=== PATIENT | male | born 1955 | race Caucasian/White ===

== ENCOUNTER 2019-11-01 05:13 | Day surgery (SDC) | payer MEDICARE, MEDICAID ==
[2019-11-01] VITALS (9 sets, daily range): BP systolic 112–144; BP diastolic 55–94
[~2019-11-01] VITALS: Ht 188 cm; Wt 120.4 kg
[2019-11-01] MEDS ORDERED: normal saline 1,000 ML IV SCH (05:40)
[2019-11-01] MEDS ORDERED: LIDOcaine/PRILOcaine 5gm cream TP ONE (05:40)
[2019-11-01] MEDS ORDERED: diphenhydrAMINE 25mg capsule PO PRN (05:40)
[2019-11-01] MEDS ORDERED: LORazepam 0.5 MG tablet PO PRN (05:40)
[2019-11-01 06:12] LABS: BASOPHILS % (AUTO) 0.6 % (0-1); EOSINOPHILS # (AUTO) 0.3 X10'3 (0-0.9); EOSINOPHILS % (AUTO) 4.2 % (0-6); HEMATOCRIT 48.7 % (42.0-52.0); HEMOGLOBIN 16.5 g/dl (14.0-17.9); LYMPHOCYTES # (AUTO) 2.6 X10'3 (1.1-4.8); MEAN CORPUSCULAR HEMOGLOBIN 30.6 PG (27.0-31.0); MEAN CORPUSCULAR HGB CONC 33.8 g/dL (33.0-36.5); MEAN CORPUSCULAR VOLUME 90.4 FL (78-98); MEAN PLATELET VOLUME 8.3 FL (7.4-10.4); MONOCYTES # (AUTO) 0.9 X10'3 (0-0.9); MONOCYTES % (AUTO) 11.4 % (2-12); NEUTROPHILS # (AUTO) 3.8 X10'3 (1.8-7.7); NEUTROPHILS % (AUTO) 49.8 % (42-75); PLATELET COUNT 287 X10'3 (140-440); RED BLOOD COUNT 5.39 X10'6 (4.70-6.10); RED CELL DISTRIBUTION WIDTH 14.5 % (11.5-14.5); WHITE BLOOD COUNT 7.7 X10'3 (4.5-11.0)
[2019-11-01] MEDS ORDERED: LISI40TA4 PO (06:13)
[2019-11-01] MEDS ORDERED: GABA-530 PO (06:13)
[2019-11-01] MEDS ORDERED: AMLO10TA13 PO (06:13)
[2019-11-01] MEDS ORDERED: ATOR40TA PO (06:13)
[2019-11-01] MEDS ORDERED: ENOX120D (06:13)
[2019-11-01] MEDS ORDERED: CLOP75TA35 PO (06:13)
[2019-11-01] MEDS ORDERED: PRAV10TA39 PO (06:13)
[2019-11-01] MEDS ORDERED: WARF3TAB56 PO (06:13)
[2019-11-01] MEDS ORDERED: SOFO1TAB3 PO (06:13)
[2019-11-01] MEDS ORDERED: METO50TA17 PO (06:13)
[2019-11-01 06:22] LABS: ALBUMIN 3.3 G/DL (3.4-5.0); ANION GAP 10 (8-16); BLOOD UREA NITROGEN 19 MG/DL (7-18); BUN/CREATININE RATIO 16.7 (5.4-32.0); CALCIUM 8.9 MG/DL (8.5-10.1); CHLORIDE 108 MMOL/L (99-107); CREATININE 1.14 MG/DL (0.60-1.10); GLUCOSE 105 MG/DL (70-104); POTASSIUM 3.9 MMOL/L (3.5-5.1); SODIUM 141 MMOL/L (135-145); TOTAL CARBON DIOXIDE 22.6 MMOL/L (24-32); eGFR 64 ML/MIN
[2019-11-01] MEDS ORDERED: nitroGLYCERIN-Tridil 50MG/D5W 250 ML IV ONE (06:22)
[2019-11-01] MEDS ORDERED: fentaNYL/PF 50MCG/1 ML 2ML syringe ONE (06:22)
[2019-11-01] MEDS ORDERED: verapamil 2.5 mg/ml inj IV ONE (06:22)
[2019-11-01] MEDS ORDERED: midazolam 2 mg/2 ml injection ONE (06:22)
[2019-11-01] MEDS ORDERED: iohexol 350MG/ML 100ml bottle IV ONE ×2 (06:23→07:11)
[2019-11-01] MEDS ORDERED: heparin 1,000unit/ml 10ml vial 10 ML ONE (06:23)
[2019-11-01] MEDS ORDERED: LIDOcaine 1% (10mg/ml)w/preservative injection 20ml MDV ONE (06:23)
[2019-11-01 06:24] LABS: PARTIAL THROMBOPLASTIN TIME 30 SECONDS (22-32)
[2019-11-01] MEDS ORDERED: nitroGLYCERIN 0.4mg SUBLingual tab SL PRN (08:20)
[2019-11-01] MEDS ORDERED: ondansetron/PF 4mg/2ml inj IV PRN (08:20)
[2019-11-01] MEDS ORDERED: HYDROcodone/acetaminophen 10/325mg tab PO PRN (08:20)
[2019-11-01] MEDS ORDERED: OXAZEpam 15mg capsule PO PRN (08:20)
[2019-11-01] MEDS ORDERED: proCHLORperazine 10 MG/2 ml inj IV PRN (08:20)
[2019-11-01] MEDS ORDERED: HYDROcodone/acetaminophen 5mg/325mg tablet PO PRN (08:20)
--- NOTE | 2019-11-01 10:20 | NUR ---
Patient in room 1340. I have received report from KATE Rosen and had the opportunity to ask questions and assume patient care.
== END 2019-11-01 11:50 | disposition home or self-care (01) ==
LOC: SSTAY O 05:13
PROVIDERS: ATTEND Student in an Organized Health Care Education/Training Program
DX: R94.39 Abnormal result of other cardiovascular function study (principal); T82.855A Stenosis of coronary artery stent, initial encounter; I25.10 Atherosclerotic heart disease of native coronary artery without angina pectoris; G47.33 Obstructive sleep apnea (adult) (pediatric); I10 Essential (primary) hypertension; I25.2 Old myocardial infarction; E78.5 Hyperlipidemia, unspecified; Z86.73 Personal history of transient ischemic attack (TIA), and cerebral infarction without residual deficits; Z95.1 Presence of aortocoronary bypass graft; Z79.01 Long term (current) use of anticoagulants; Z79.899 Other long term (current) drug therapy; Z95.4 Presence of other heart-valve replacement; Y83.8 Other surgical procedures as the cause of abnormal reaction of the patient, or of later complication, without mention of misadventure at the time of the procedure; Y92.89 Other specified places as the place of occurrence of the external cause
CPT/HCPCS: 36415; 80048; 85025; 85610; 85730; 93005; 93455; 99152; 99153; C1760; C1769; C1894; J1644; J2001; J2250; J3010; J7030; Q0163; Q9967; A4620; A5120; J3490

== ENCOUNTER 2024-08-05 15:08 | Inpatient (IN) | payer MEDICAID, MEDICARE ==
[~2024-08-05] VITALS: Ht 188 cm; Wt 104.0 kg
[~2024-08-05 15:08] MED LIST: AMLO10TA13 PO; ATOR40TA PO; CLOP75TA34 PO; GABA-530 PO; LISI40TA13 PO; METO50TA17 PO; PRAV10TA39 PO; SOFO1TAB3 PO; WARF3TAB56 PO
--- NOTE | 2024-08-05 15:14 | Physician Documentation ---
History of Present Illness ~ Stated Complaint: NSTEMI Time Seen by MD: 15:13 OK to notify your PCP?: Yes Source: patient, RN/MD, EMS, RN notes reviewed, old records Mode of Arrival: EMS Exam Limitations: no limitations HPI 68 year old male seen in the bed 01 presents to the emergency department via EMS as a transfer from [facility] due to an Nstemi. HPI from [facility]: This 75 year old male with a complex past medical history presents today after sustaining a ground level fall with a head strike to the back of his head, he was experiencing neck pain, he does recall the entire event but on arrival here today he notes he has been having multiple falls recently, he has been feeling generally unwell for about five days. He had a temp on arrival of 102 F by medic and was given a gram of IV Tylenol, he also had an oxygen saturation of 87% on room air. He denies loss of consciousness. Meds given to the patient: Sodium chloride: 1000ml Lasix: 40mg/4ml Lidocaine 400mg Fentanyl: 50mcg/1ml Aspirin: 324mg Lovenox: 100mg CT Head without contrast: Impressions: 1: No evidence of acute intracranial hemorrhage, midline shift or mass effect. 2: Mild cerebral volume loss with mild nonspecific periventricular white matter hypodensity probably secondary to chronic small vessel ischemic disease. 3: Area of hypodensity in the left occipital region, nonspecific, may be encephalomalacia from chronic infarct. CT Cervical spine without contrast: Impression: No evidence of acute cervical spine fracture or malalignment. Chest AP 1 view: Impressions : No evidence of acute disease. Cardiomegaly. Right elbow 3 views: Possible cortical defect of the distal humerus, only visualized on lateral view and no significant joint effusion. Nondisplaced fracture cannot be entirely excluded. Medication Reconciliation Allergies: Coded Allergies: No Known Allergies (Unverified , 11/01/19) Scheduled Amlodipine Besylate (Amlodipine Besylate), 0.5 MG PO DAILY, (Reported) Atorvastatin Calcium* (Lipitor*), 1 TAB PO DAILY, (Reported) Clopidogrel Bisulfate (Clopidogrel), 75 MG PO DAILY, (Reported) Furosemide (Furosemide), 1 TAB PO BID, (Reported) Gabapentin (Gabapentin), 100 MG PO TID, (Reported) Lisinopril* (Lisinopril*), 40 MG PO DAILY, (Reported) Metoprolol Succinate (Metoprolol Succinate), 1 TAB PO DAILY, (Reported) Pravastatin Sodium (Pravastatin Sodium), 10 MG PO DAILY, (Reported) Discontinued Medications Metoprolol Tartrate* (Metoprolol Tartrate*), 50 MG PO DAILY, (Reported) Discontinued Reason: wrong med Sofosbuvir/Velpatasvir (Sofosbuvir-Velpatasvir 400-100), 1 TAB PO DAILY, (Reported) Discontinued Reason: patient no longer taking Warfarin Sodium (Warfarin Sodium), 3 MG PO DAILY, (Reported) Discontinued Reason: patient no longer taking Past Medical History Past Medical History: Dementia, Coronary Artery Disease, Hypertension, Hepatitis C, Chronic Back Pain, Osteoarthritis Past Surgical History: orthopedic surgeries, other Review of Systems All Other Systems at this time: Reviewed and Negative ROS As stated above in the HPI, otherwise all systems are reviewed and negative. Physical Exam Vital Signs: RN Vital Signs have been reviewed: Yes Pulse Oximetry Reflects: adequate oxygenation Physical Exam General: The patient is well developed, well nourished, nontoxic appearing and is in no acute distress. Skin: [place], warm and dry with no rashes. HEENT: Head was normocephalic and atraumatic. Eyes - pupils equal, round, reactive to light and accommodation. Extraocular movements were intact. Conjunctivae were nonicteric. Ears - bilateral tympanic membranes were normal. The mouth and oropharynx were clear with moist mucous membranes. There were no pharyngeal exudates or erythema. Neck: Supple and nontender. There was no jugular venous distention, lymphadenopathy, thyromegaly or masses. Chest: Clear to auscultation bilaterally without wheezes, rales or rhonchi. No accessory muscle use. No dullness to percussion. Heart: Rate IRRegular and rhythmic. S1, S2. No murmurs. Palpation of the chest wall was normal. No rubs or thrills. Abdomen: Soft, nontender and nondistended. Positive bowel sounds. No guarding or rebound. No hepatosplenomegaly or palpable masses. Extremities: Left ruth is read and warm to touch. No cyanosis, clubbing or edema. The patient moves all extremities. Pulses were equal and symmetric. Neurologic: Cranial nerves II-XII were intact. Sensation was intact to light touch throughout. Motor strength was 5/5 in all four extremities. Deep tendon reflexes were intact in both upper and lower extremities. Psychologic: The patient was oriented to person, place and time. The patient demonstrated appropriate judgement and insight. Progress Progress Note 1550: The case was discussed with Dr. Joseph who was informed on the patients case and kindly agreed to admission. 1658: [facility] called and confirmed the patient is negative for covid. Results/Orders Reviewed/noted all lab results: Yes Results/Orders Orders - OBEY COX MD Echocardiogram (08/05/24 15:21) Monitor (08/05/24 15:21) Oxygen (08/05/24 15:21) Saline Lock (08/05/24 15:21) Electrocardiogram (08/05/24 15:21) Page Hospitalist (08/05/24:25) Fill Out Med Reconciliation (08/05/24 15:25) Completed Orders - OBEY COX MD Cbc/Diff (08/05/24 15:21) MG (08/05/24 15:21) Pt Inr (08/05/24 15:21) PTT (08/05/24 15:21) PBNP (08/05/24 15:21) Echocardiogram (08/05/24 15:21) C-Reactive Protein (08/05/24 15:21) ESR (08/05/24 15:21) Normal Saline 1000ml (Sodium Chloride 10 (08/05/24 15:25) Electrocardiogram (08/05/24 15:21) Hs Troponin I W Calculations (08/05/24 15:21) Ceftriaxone 2gm/D5w 50ml Bag (Rocephin 2 (08/05/24 15:35) CMP (08/05/24 15:30) Ua W/Microscopic, Cult If Ind (08/05/24 17:17) Vital Signs 08/05/24 08/05/24 08/05/24 08/05/24 15:18 15:20 15:20 15:47 Temp 98.3 Pulse 90 69 Resp 20 16 14 B/P (MAP) 105/65 124/89 (101) Pulse Ox 95 95 100 O2 Delivery Nasal Cannula* O2 Flow Rate 0 2 0 FiO2 N/A Laboratory Tests Test 08/05/24 15:30 White Blood Count 8.7 Red Blood Count 4.79 Hemoglobin 12.9 L Hematocrit 38.9 L Mean Corpuscular Volume 81.3 Mean Corpuscular Hemoglobin 26.9 L Mean Corpuscular Hemoglobin Concent 33.1 Red Cell Distribution Width 19.8 H Platelet Count 192 Mean Platelet Volume 8.3 Neutrophils (%) (Auto) 85.3 H Lymphocytes (%) (Auto) 7.2 L Monocytes (%) (Auto) 7.2 Eosinophils (%) (Auto) 0.1 Basophils (%) (Auto) 0.2 Neutrophils # (Auto) 7.5 Lymphocytes # (Auto) 0.6 L Monocytes # (Auto) 0.6 Eosinophils # (Auto) 0.0 Basophils # (Auto) 0.0 CBC Comment Erythrocyte Sedimentation Rate 6 Prothrombin Time 12.0 INR International Normalized Ratio 1.2 Activated Partial Thromboplast Time 31 Coagulation Comments Sodium Level 144 Potassium Level 3.9 Chloride Level 108 H Carbon Dioxide Level 23.8 L Anion Gap 12 Blood Urea Nitrogen 17 Creatinine 1.61 H Estimated GFR/1.73 m2 43 BUN/Creatinine Ratio 10.6 Glucose Level 110 H Calcium Level 8.3 L Magnesium Level 1.7 Total Bilirubin 1.0 Aspartate Amino Transf (AST/SGOT) 24 Alanine Aminotransferase (ALT/SGPT) 22 Alkaline Phosphatase 84 Troponin I High Sensitivity 576 *H C-Reactive Protein 2.69 H Pro-B-Type Natriuretic Peptide 6438 H Total Protein 6.0 L Albumin 2.7 L Globulin 3.3 Albumin/Globulin Ratio 0.8 L Chemistry Comments Re-Evaluation Re-Evaluation : Re-Evaluation: Improved Progress Patient was seen and examined. Patient was given reassurance. Patient was transferred from [facility]. Patient had new onset with AFib RVR. Patient also had positive troponins and was sent over to the ER for further workup and care. Laboratory work shows borderline anemia with a hemoglobin of 12 hematocrit 38 otherwise within normal limits. Coagulation within normal limits. Chemistry shows initial troponin at 572nd troponin elevated at 3715. BUN is 17 creatinine 1.61. ProBNP 6438 consistent with heart failure as well. Urinalysis showed trace hematuria. Patient received fluid for the elevated creatinine and possible cardiac catheterization. Questionable UTI was considered in his ceftriaxone was given. I then consulted the hospitalist who kindly agreed to admit the patient for further workup and care. Also concerning is the patient's AFib which is now rate controlled is a new finding. Continuous undercutter operator interpretation shows irregular heart rate 90s, normal, my interpretation. Pulse oximetry monitor interpretation shows normal oxygenation at 95% room air normal, my interpretation. 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 Obey Cox Measurements Intervals [place] Rate: 86 P: -63 CT: 161 QRS: 48 QRSD: 112 T: 95 QT: 438 QTc: 524 Interpretive Statements Sinus or ectopic atrial rhythm Borderline intraventricular conduction delay Low voltage, extremity leads Repol abnrm suggests ischemia, anterolateral Prolonged QT interval Electronically Signed On 08-05-2024 16:43:[address] Obey Cox Please click the below link to view image of tracing. EKG Date and Time:08/05/24 1529 Electronically Signed by: OBEY COX MD Date and Time: 08/05/24 1643 Heart Score: Heart Score Response (Comments) Value History Slightly Suspicious [address]-Deviation 2 Age >65 2 Risk Factors 1 or 2 risk factors 1 Troponin 1-2 x's Normal limit 1 Total 6 Medical Decision Making Additional info obtained from: old records Differential Dx:Considerations: Include: angina, aortic dissection, chest wall pain, cholelithiasis, CHF, costochondritis, esophageal reflux/spasm, myocardial infarction, pericarditis, pleuritis, pneumonia, pulmonary embolus, other Departure Time of Disposition: 15:50 Disposition: 09 ADMITTED INPATIENT Admitted to Inpatient Unit: yes, to hospitalist Admission Level of Care: PCU with Tele Impression: Primary Impression: NSTEMI (non-ST elevated myocardial infarction) Additional Impressions: Fever Qualified Codes: R50.9 - Fever, unspecified Cellulitis of the left ruth New onset a-fib Condition: Fair Referrals: NO PRIMARY CARE PROVIDER (PCP) Education Educated: Patient Educated regarding: diagnosis Critical Care Note Total Time (mins): 33 Critical Care Note The very real possibility of a deterioration of this patient's condition required the highest level of my preparedness for sudden, emergent intervention. I provided critical care services, which included medication orders, frequent reevaluations of the patient's condition and response to treatment, ordering and reviewing test results, and discussing the case with various consultants. Excludes time spent performing separately billable procedures. The critical care time associated with the care of the patient was 33 minutes. Signature Scribe Signature: Scribed for Obey Cox MD by Alpesh Haynes . 08/05/24 15:41 Attestation: The note accurately reflects work and decisions made by me.Obey Cox MD 08/05/24 15:14 OBEY COX MD Aug 05, 2024 15:14 ALPESH HUFF Aug 05, 2024 15:38
--- NOTE | 2024-08-05 15:31 | ELECTROCARDIOGRAPH REPORT ---
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 Pola Gonzales Measurements Intervals [place] Rate: 86 P: -63 [place]: 161 QRS: 48 QRSD: 112 T: 95 QT: 438 QTc: 524 Interpretive Statements Sinus or ectopic atrial rhythm Borderline intraventricular conduction delay Low voltage, extremity leads Repol abnrm suggests ischemia, anterolateral Prolonged QT interval Electronically Signed On 08-05-2024 16:43:[address] Pola Gonzales Please click the below link to view image of tracing.
[2024-08-05] MEDS ORDERED: FURO40TA4 PO (15:38)
[2024-08-05] MEDS: CefTRIAXone 2gm/D5W 50ml BAG 50 ML IV ONE (15:52)
[2024-08-05] MEDS: normal saline 1000ml 1,000 ML IV ONE (15:52)
[2024-08-05] MEDS ORDERED: nitroGLYCERIN 0.4mg SUBLingual tab SL PRN (16:00)
[2024-08-05] MEDS ORDERED: magnesium sulf-water 4G/100mL 100 ML IV PRN (16:00)
[2024-08-05] MEDS: normal saline 1000ml 1,000 ML IV SCH (16:00)
[2024-08-05] MEDS ORDERED: potassium Cl 20 mEq SR tablet PO PRN (16:00)
[2024-08-05] MEDS ORDERED: regadenoson 0.4mg/5ml syringe IV PRN (16:00)
[2024-08-05] MEDS ORDERED: metoprolol tartrate 1mg/ml inj IV PRN (16:00)
[2024-08-05] MEDS ORDERED: magnesium sulf-water 2g/50mL 50 ML IV PRN (16:00)
[2024-08-05] MEDS ORDERED: potassium Cl 40MEQ/1/2NS 520ml 520 ML IV PRN (16:00)
[2024-08-05] MEDS ORDERED: aminophylline 500mg/20ml vial IV PRN (16:00)
[2024-08-05] MEDS ORDERED: magnesium Cl slow-release 64mg tablet PO PRN (16:00)
--- NOTE | 2024-08-05 16:00 | HISTORY AND PHYSICAL ---
History & Physical Providers to CC ~ History of Present Illness Reason for Admit\Complaint: Ground level fall History of Present Illness 68 year old male presented to the emergency department via EMS as a transfer from [facility] due to an NSTEMI. .Patient says he has been feeling generally unwell for about five days. Patient does not report any symptoms however. He had a temp on arrival of 102 F by medic and was given a gram of IV Tylenol, he also had an oxygen saturation of 87% on room air. Patient has an elevated troponin and has received full dose Lovenox in the ER and ASA . He is being admitted for further treatment of his generalized weakness and evaluation of his abnormal Troponin. Dr. Mcdaniels consulted . Patient denies chest pain , palpitations, orthopnea , PND ankle edema, abdominal pain, dysuria , frequency urgency or hematuria. Patient denies any focal neurological symptoms. Allergies: Coded Allergies: No Known Allergies (Unverified , 11/01/19) Home Medications Home Medications Active Reported Furosemide 40 Mg Tablet 1 Tab PO BID Lipitor* (Atorvastatin Calcium) 40 Mg Tablet 1 Tab PO DAILY Gabapentin 100 Mg Capsule 100 Mg PO TID Amlodipine Besylate 10 Mg Tablet 0.5 Mg PO DAILY Pravastatin Sodium 10 Mg Tablet 10 Mg PO DAILY Lisinopril* (Lisinopril) 40 Mg Tablet 40 Mg PO DAILY Metoprolol Tartrate* (Metoprolol Tartrate) 50 Mg Tablet 50 Mg PO DAILY Clopidogrel (Clopidogrel Bisulfate) 75 Mg Tablet 75 Mg PO DAILY Past Medical History Past Medical History Patient reports none Past Surgical History Surgical History Comment None Family History Family History: Family history was reviewed; no changes noted. Past Social History Social History Comment Does not smoke drink or do any drugs Health Maintenance Health Maintenance Current on his immunizations ROS ROS All other systems are reviewed and are negative except as mentioned in HPI Exam Vitals: Vital Signs Date Time Temp Pulse Resp B/P (MAP) Pulse Ox O2 Delivery O2 Flow Rate FiO2 08/05/24 15:47 69 14 124/89 (101) 100 0 08/05/24 15:18 98.3 General: Awake alert oriented in NAD HEENT: NC,AT , EOMI , Sclera anicteric Neck: Supple , no JVD Chest: Clear to auscultation, no wheezes crackles or rhonchi Cardiovascular: RRR, no murmur gallop or rub Abdomen: Soft nontender no organomegaly Extremities: No cyanosis clubbing or edema Central Nervous System: Nonfocal. Moves all four extremities Musculoskeletal: No joint swelling or deformities Skin: Erythema of both his groins, more so on the right side. Well healed scar in mid chest. Diagnostic Data Diagnostic Data: Laboratory Tests Test 08/05/24 15:30 Coagulation Comments Additional Plan Patient is a 68 years old male who states that he just did not feel well. Patient did not have any symptoms to report 1. Abnormal troponin: Patient has a full dose of Lovenox. I contacted Dr. Mcdaniels and he recommended that we obtain a Tonya Scan and consult him after its results are available. 2.. Intertriginous candidiasis :Nystatin 3. HTN: Resume home medications lisinopril and amlodipine once reconciled. 4. Hyperlipidemia: Continue atorvastatin. 5. History of mitral valve replacement: Patient states he had a surgery 20 years ago. Does not remember the exact details and thinks he had a mitral valve replaced. 6. Code status Full code. Date of Service: Aug 05, 2024 Billing Provider: RADHA LARSON MD Common Visit Codes: [id number] INP/OBS CARE (HIGH) RADHA LARSON MD Aug 05, 2024 16:00
[2024-08-05 16:05] LABS: BASOPHILS % (AUTO) 0.2 % (0-1); EOSINOPHILS % (AUTO) 0.1 % (0-6); HEMATOCRIT 38.9 % (42.0-52.0); HEMOGLOBIN 12.9 g/dl (14.0-17.9); LYMPHOCYTES # (AUTO) 0.6 X10'3 (1.1-4.8); LYMPHOCYTES % (AUTO) 7.2 % (21-51); MEAN CORPUSCULAR HEMOGLOBIN 26.9 PG (27.0-31.0); MEAN CORPUSCULAR HGB CONC 33.1 g/dL (33.0-36.5); MEAN CORPUSCULAR VOLUME 81.3 FL (78-98); MEAN PLATELET VOLUME 8.3 FL (7.4-10.4); MONOCYTES # (AUTO) 0.6 X10'3 (0-0.9); MONOCYTES % (AUTO) 7.2 % (2-12); NEUTROPHILS # (AUTO) 7.5 X10'3 (1.8-7.7); NEUTROPHILS % (AUTO) 85.3 % (42-75); PLATELET COUNT 192 X10'3 (140-440); RED BLOOD COUNT 4.79 X10'6 (4.70-6.10); RED CELL DISTRIBUTION WIDTH 19.8 % (11.5-14.5); WHITE BLOOD COUNT 8.7 X10'3 (4.5-11.0)
[2024-08-05 16:10] LABS: APTT 31 SECONDS (22-32); INR 1.2 INR
[2024-08-05 16:19] LABS: C-REACTIVE PROTEIN 2.69 MG/DL (0.0-0.5); MAGNESIUM 1.7 MG/DL (1.5-2.4); PRO BRAIN NATRIURETIC PEPTIDE 6438 PG/ML (0-125)
[2024-08-05] MEDS: PERFLUTREN PROTEIN-A MICROSPHR (Optison) 0.22 MG/ML 3ML VIAL IV ONE (16:35)
[2024-08-05 17:17] LABS: ALANINE AMINOTRANSFERASE 22 U/L (12-78); ALBUMIN 2.7 G/DL (3.4-5.0); ALBUMIN/GLOBULIN RATIO 0.8 (1.1-1.5); ALKALINE PHOSPHATASE 84 IU/L (46-116); ANION GAP 12 (8-16); ASPARTATE AMINO TRANSFERASE 24 U/L (10-37); BLOOD UREA NITROGEN 17 MG/DL (7-18); BUN/CREATININE RATIO 10.6 (10.0-20.0); CALCIUM 8.3 MG/DL (8.5-10.1); CHLORIDE 108 MMOL/L (99-107); CREATININE 1.61 MG/DL (0.60-1.10); GLUCOSE 110 MG/DL (70-104); POTASSIUM 3.9 MMOL/L (3.5-5.1); SODIUM 144 MMOL/L (135-145); TOTAL CARBON DIOXIDE 23.8 MMOL/L (24-32); eCRCL 50 ML/MIN; eGFR 43 ML/MIN
[2024-08-05 17:28] LABS: BILIRUBIN,URINE NEGATIVE (Neg); CLARITY,URINE SLIGHTLY CLOUDY (Clear); COLOR,URINE YELLOW (Yellow); GLUCOSE, URINE NEGATIVE (Neg); KETONES,URINE NEGATIVE (Neg); LEUKOCYTE ESTERASE ,URINE NEGATIVE (Neg); NITRITES, URINE NEGATIVE (Neg); OCCULT BLOOD,URINE LARGE (Neg); PH,URINE 5.5 (4.8-8.0); PROTEIN,URINE NEGATIVE (Neg); UROBILINOGEN,URINE 0.2 E.U/dL (0.2-1.0)
[2024-08-05 17:29] LABS: UA COLLECTION TYPE CLN CATCH MIDSTREAM
[2024-08-05 17:38] LABS: RBC,URINE TNTC /HPF (0-2); SQUAMOUS EPITHELIAL CELL,UR MODERATE /LPF (FEW)
[2024-08-05 17:39] LABS: BACTERIA,URINE FEW /HPF (Neg); TRANSITIONAL EPI CELLS,URINE FEW /HPF; WBC,URINE 0-4 /HPF (0-4)
[2024-08-05] MEDS: morphine 2 MG/ML inj. syringe IV PRN (19:13)
[2024-08-05] MEDS: LIDOcaine 2% Viscous 15ml cup MM PRN (19:15)
[2024-08-05] MEDS: K and/or MAG REPLACEMENT MC SCH (20:00)
[2024-08-06] VITALS (15 sets, daily range): BP systolic 110–145; BP diastolic 69–85; PULSE 82–99; RESP 14–25; TEMP 97.1–98.6; O2SAT 93–96
[2024-08-06 07:31] LABS: BASOPHILS % (AUTO) 0.4 % (0-1); EOSINOPHILS % (AUTO) 0.1 % (0-6); HEMATOCRIT 38.7 % (42.0-52.0); HEMOGLOBIN 12.7 g/dl (14.0-17.9); LYMPHOCYTES # (AUTO) 0.7 X10'3 (1.1-4.8); LYMPHOCYTES % (AUTO) 9.9 % (21-51); MEAN CORPUSCULAR HEMOGLOBIN 26.7 PG (27.0-31.0); MEAN CORPUSCULAR HGB CONC 32.8 g/dL (33.0-36.5); MEAN CORPUSCULAR VOLUME 81.4 FL (78-98); MEAN PLATELET VOLUME 8.6 FL (7.4-10.4); MONOCYTES # (AUTO) 0.6 X10'3 (0-0.9); MONOCYTES % (AUTO) 8.9 % (2-12); NEUTROPHILS # (AUTO) 5.4 X10'3 (1.8-7.7); NEUTROPHILS % (AUTO) 80.7 % (42-75); PLATELET COUNT 156 X10'3 (140-440); RED BLOOD COUNT 4.76 X10'6 (4.70-6.10); RED CELL DISTRIBUTION WIDTH 19.6 % (11.5-14.5); WHITE BLOOD COUNT 6.7 X10'3 (4.5-11.0)
[2024-08-06 07:49] LABS: ALBUMIN 2.6 G/DL (3.4-5.0); BLOOD UREA NITROGEN 16 MG/DL (7-18); MAGNESIUM 1.7 MG/DL (1.5-2.4); eCRCL 57 ML/MIN; eGFR 50 ML/MIN
[2024-08-06 08:12] LABS: ANION GAP 9 (8-16); BUN/CREATININE RATIO 11.4 (10.0-20.0); CALCIUM 8.1 MG/DL (8.5-10.1); CHLORIDE 105 MMOL/L (99-107); GLUCOSE 100 MG/DL (70-104); POTASSIUM 3.7 MMOL/L (3.5-5.1); SODIUM 138 MMOL/L (135-145); TOTAL CARBON DIOXIDE 23.8 MMOL/L (24-32)
[2024-08-06] MEDS: nystatin 15 GM powder TP SCH (08:57)
[2024-08-06] MEDS ORDERED: heparin 10,000 units/1 ML INJ IV ONE (09:10)
[2024-08-06] MEDS ORDERED: heparin 10,000 units/1 ML INJ IV PRN ×2 (09:10→09:15)
[2024-08-06] MEDS ORDERED: heparin 25,000 UNIT/250ml bag 250 ML IV PRN (09:10)
[2024-08-06] MEDS: heparin 10,000 units/1 ML INJ IV ONE (09:35)
[2024-08-06] MEDS: MESSAGE TO NURSING IV ONE (09:36)
[2024-08-06] MEDS: heparin 25,000 UNIT/250ml bag 250 ML IV PRN (09:36)
[2024-08-06] MEDS: HEPARIN DRIP-CARDIAC**PHARMACIST-TO-DOSE IV ONE ×2 (09:38)
[2024-08-06 09:48] LABS: BASOPHILS % (AUTO) 0.5 % (0-1); EOSINOPHILS % (AUTO) 0.1 % (0-6); HEMATOCRIT 41.3 % (42.0-52.0); HEMOGLOBIN 13.4 g/dl (14.0-17.9); LYMPHOCYTES # (AUTO) 0.8 X10'3 (1.1-4.8); LYMPHOCYTES % (AUTO) 10.6 % (21-51); MEAN CORPUSCULAR HEMOGLOBIN 26.6 PG (27.0-31.0); MEAN CORPUSCULAR HGB CONC 32.4 g/dL (33.0-36.5); MEAN CORPUSCULAR VOLUME 82.1 FL (78-98); MEAN PLATELET VOLUME 8.4 FL (7.4-10.4); MONOCYTES # (AUTO) 0.6 X10'3 (0-0.9); MONOCYTES % (AUTO) 8.3 % (2-12); NEUTROPHILS # (AUTO) 5.9 X10'3 (1.8-7.7); NEUTROPHILS % (AUTO) 80.5 % (42-75); PLATELET COUNT 147 X10'3 (140-440); RED BLOOD COUNT 5.04 X10'6 (4.70-6.10); RED CELL DISTRIBUTION WIDTH 19.4 % (11.5-14.5); WHITE BLOOD COUNT 7.3 X10'3 (4.5-11.0)
[2024-08-06 09:59] LABS: APTT 28 SECONDS (22-32); INR 1.2 INR; PROTHROMBIN TIME 11.9 SECONDS (9.0-12.0)
--- NOTE | 2024-08-06 13:04 | RADIOLOGY REPORT ---
CT CT HEAD INDICATION: MECHANICAL FALLS, POOR MEMORY EXAM DATE: 08/06/2024 12:43 PM COMPARISON: None RADIATION DOSE: CTDIvol: 58 mGy, DLP: 1063 mGy*cm PROCEDURE: CT scans of the head were obtained from the vertex to the skull base. Sagittal and coronal reconstructions were provided. All CT scans at this medical facility are performed using dose modulation techniques as appropriate t o a performed exam including the following: Automated exposure control was utilized; adjustment of th e MA and/or KV according to patient size; and use of iterative reconstruction technique. 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 There is sulcal and ventricular prominence. The brain otherwise shows normal morphology and bhatt -white matter differentiation, without intracranial hemorrhage, extra-axial fluid collection, mass ef fect or acute large vessel infarct. The ventricles are normal in size. The basal cisterns are patent. The skull and visible facial bones are intact. The paranasal sinuses, mastoid air cells and middle e ar cavities are well-aerated. The soft tissues of the scalp are unremarkable. 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 No acute intracranial abnormality.
--- NOTE | 2024-08-06 14:09 | CONSULTATION REPORT ---
Cardiac Consultation Report Providers to CC ~ Subjective Subjective Cardiology consultation: 68-year-old male was transferred from [facility] and was noted to have a non ST elevated GA with troponin of three. He is a vague inconsistent historian. He says he has been falling for the past two weeks not prior to that does not seem to be the case. He says he does not smoke and drinks very little alcohol. He denies recreational drug use. Due to the non ST elevated GA he was kept NPO and he is trying to eat ice chips with shaking hands and difficulty getting it into his mouth. Medications from [facility] patient does not actually know them include furosemide Lipitor gabapentin amlodipine pravastatin lisinopril metoprolol and clopidogrel. Does not recall his physician's name there. Tells me that he no longer has a car and neighbors take care of him. He states he could not afford the car. He does not know why he takes gabapentin. Present charge old trialed old records were reviewed. He had heart catheterization by Dr. Roselia Ko 11/01/2019 for chest pain and positive stress test. Findings RM to LAD patent vein graft to diagonal patent vein graft sequential to OM1 OM2 patent LAD is small caliber diagonal small caliber OM small to medium caliber. Large caliber right coronary with 40% stenosis. Objective Vitals Vital Signs Date Time Temp Pulse Resp B/P (MAP) Pulse Ox O2 Delivery O2 Flow Rate FiO2 08/06/24 10:09 98.5 93 17 122/73 (89) 95 08/06/24 07:18 Nasal Cannula 2.0 08/05/24 22:52 N/A Lab Results: 08/06/24 0917 08/06/24 0620 Objective Carotid no bruit chest clear to auscultation percussion heart systolic murmur aortic focus left sternal border apex no S3 gallop no rub. Diastolic murmur not heard. Abdomen nontender active bowel sound pulses plus two upper and lower extremities. Left foot has chronic necrotic appearing toes. Memory is poor no nystagmus he has a tremor both arms. I did not test his gait. Plantars are withdrawal. Mother Helper strength equal bilaterally. Able to lift his legs against gravity. Coagulation Studies Laboratory Tests Test 08/06/24 09:17 Prothrombin Time 11.9 SECONDS (9.0-12.0) INR International Normalized Ratio 1.2 INR Activated Partial Thromboplast Time 28 SECONDS (22-32) Coagulation Comments Other Results Echocardiogram reviewed. Probable moderate mitral stenosis heavy calcification of mitral valve and mitral ring. Mild aortic valve stenosis. Mild mitral regurgitation. Ejection fraction appears to be 55 60%. Dyssynchronous contractility left ventricular hypertrophy present biatrial enlargement present. Electrocardiogram no acute ST depression or elevation. Problem\Assessment\Plan Additional Plan Impression: Non ST elevated GA noted after what appears to be a fall of indeterminate etiology. Patient denies anginal-type symptoms. Known atherosclerotic heart disease past coronary bypass grafting on bypass 40% stenosis the right coronary documented in 2019 all grafts patent at that time however the distal vasculature was reported as small. Dementia uncertain etiology. Recommendation: 1. Cat scan of brain exclude any bleeding. 2. Diagnostic coronary angiography intervention as may be needed. Graft angiography. Risks benefits alternatives discussed with patient and he would like to proceed risks include and not restricted to stroke myocardial infarction renal failure neurologic vascular complications bleeding complications allergic reaction. He would like to proceed. We will await CAT scan report. 3. CAT scan performed report of left occipital lobe left frontal lobe old infarct with encephalomalacia. Impression: In the past patient was on warfarin no longer does so perhaps he has had atrial arrhythmias certainly with the mitral valve and atrial enlargement not unlikely. I doubt that he will be able to comply. Prognosis is guarded. NAYAN MENJIVAR MD Aug 06, 2024 14:09
[2024-08-06] MEDS ORDERED: LIDOcaine 1% 30ml preserv. free vial ONE (14:31)
[2024-08-06] MEDS ORDERED: diphenhydrAMINE 50 mg/ml inj ONE (14:31)
[2024-08-06] MEDS ORDERED: fentaNYL/PF 50MCG/1 ML 2ML syringe ONE (14:32)
[2024-08-06] MEDS ORDERED: iohexol 350MG/ML 100ml bottle IV ONE ×3 (14:32→16:31)
[2024-08-06] MEDS ORDERED: midazolam 1 mg/ML 2ml injection ONE (14:32)
[2024-08-06] MEDS ORDERED: ticagrelor 90mg tablet ONE (15:45)
[2024-08-06] MEDS ORDERED: aspirin 325mg tablet ONE (15:45)
[2024-08-06] MEDS ORDERED: tirofiban 12.5mg in NS 250mL 250 ML IV ONE (15:47)
[2024-08-06] MEDS ORDERED: hydrALAZINE 20mg/ml inj. ONE (16:55)
[2024-08-06] MEDS ORDERED: METO-395 PO (16:58)
[2024-08-06] MEDS ORDERED: HYDROmorphone 1 mg/ml syringe ONE (17:03)
[2024-08-06] MEDS ORDERED: nitroGLYCERIN-Tridil 50MG/D5W 250 ML IV ONE (17:06)
[2024-08-06] MEDS ORDERED: metoprolol tartrate 1mg/ml inj IV ONE (17:06)
[2024-08-06] MEDS ORDERED: atorvastatin 10mg tablet PO SCH (17:40)
--- NOTE | 2024-08-06 18:07 | PROGRESS NOTE ---
Daily Progress Note Providers to CC ~ Antibiotic Timeout Antibiotic Ordered?: No Subjective None new ,chest pain free Objective Vital Signs Date Time Temp Pulse Resp B/P (MAP) Pulse Ox O2 Delivery O2 Flow Rate FiO2 08/06/24 10:09 98.5 93 17 122/73 (89) 95 08/06/24 07:18 Nasal Cannula 2.0 08/05/24 22:52 N/A Result Diagram: 08/06/24 0917 08/06/24 0620 Awake alert asymptomatic HEENT Normocephalic atraumatic Neck supple, no JVD Chest CTA , No wheezes crackles or rhonchi Heart RRR Abdomen soft nontender no organomegaly No C/C/E Skin: Bilateral groin erythema right worst than left Coagulation Studies Laboratory Tests Test 08/06/24 09:17 Prothrombin Time 11.9 SECONDS (9.0-12.0) INR International Normalized Ratio 1.2 INR Activated Partial Thromboplast Time 28 SECONDS (22-32) Coagulation Comments Other Results Medications reviewed Problem\Assessment\Plan Patient is a 68 years old male who states that he just did not feel well. Patient did not have any symptoms to report 1.NSTEMI : Start IV heparin . Contacted Dr. Mcdaniels again and patient is scheduled for an angiogram. 2. Intertriginous candidiasis :Nystatin 3. HTN Resume home medications lisinopril and amlodipine 4. Hyperlipidemia: Continue atorvastatin. Code status Full code. Date of Service: Aug 06, 2024 Billing Provider: RADHA LARSON MD Common Visit Codes: [id number] INP/OBS CARE(HIGH) RADHA LARSON MD Aug 06, 2024 18:07
[2024-08-06] MEDS: normal saline 1000ml 1,000 ML IV SCH (18:10)
[2024-08-06] MEDS ORDERED: ondansetron/PF 4mg/2ml inj IV PRN (18:10)
[2024-08-06] MEDS ORDERED: HYDROcodone/acetaminophen 5mg/325mg tablet PO PRN (18:15)
[2024-08-06] MEDS ORDERED: nitroGLYCERIN 0.4mg SUBLingual tab SL PRN (18:15)
[2024-08-06] MEDS ORDERED: HYDROcodone/acetaminophen 10/325mg tab PO PRN (18:15)
[2024-08-06] MEDS ORDERED: OXAZEpam 15mg capsule PO PRN (18:15)
[2024-08-06] MEDS ORDERED: proCHLORperazine 10 MG/2 ml inj IV PRN (18:15)
--- NOTE | 2024-08-06 18:47 | CARDIAC CATH REPORT ---
Cardiology Post Cath Findings Findings Findings: Cardiology post catheterization note uncomplicated left heart catheterization left ventriculography right coronary stent deployment posterior descending artery PTCA. Indication: Non ST elevated MO. other diagnosis remote coronary bypass grafting date unknown echo cardiographic moderate mitral stenosis. Appears to have prosthetic device in the mitral position. 1. Inferior moderate hypokinesis. Mid anterior mild hypokinesis. Ejection fraction 45%. 2. Left internal mammary to left anterior descending patent left anterior desc ending less than a mm in diameter post graft insertion graft vessel mismatch. 3. Sequential vein graft to left circumflex obtuse marginal with distal attachment completely occluded. Obtuse marginal attachment patent. 4. Vein graft to diagonal completely occluded 5. Eccentric 90% hazy proximal right coronary 90% ostia of posterior descending artery 2 mm or less in diameter. 6. Right coronary stent 0% residual narrowing HERMES three flow. Posterior descending artery PTCA 2 mm balloon. 2 mm x 8 mm stent could not be passed due to lack of support 90 degree angle tortuosity. Recommendation: 1. Restart the patient's home medication it has not been started since hospitalization 2. 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 3. Received Brilinta 180 mg p.o. it is unclear if he was taking Plavix as an outpatient or not. 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 He is not taking his warfarin as far as is known. Continue Brilinta and aspirin unless he is on warfarin then it is enough to continue Plavix and warfarin. 4. Angio-Seal could not be passed. Manual compression. Bedrest until a.m.. Then ambulate freely. NAYAN MENJIVAR MD Aug 06, 2024 18:47
[2024-08-06] MEDS: nitroGLYCERIN-Tridil 50MG/D5W 250 ML IV SCH (18:53)
--- NOTE | 2024-08-06 20:40 | CARDIOLOGY REPORT ---
DATE OF SERVICE: 08/06/2024 DICTATING PHYSICIAN: Yasmany Mcdaniels MD PROCEDURES: * Left heart catheterization. * Left ventriculography. * Selective left and right coronary arteriography. * Left internal mammary to left anterior descending angiography. * Vein graft angiography, sequential obtuse 1, obtuse 2 marginal. * Vein graft angiography, diagonal. * Right coronary stent. * PTCA of posterior descending artery. * Left ventriculogram. * Right iliofemoral arteriogram. * Hemostasis with manual compression. BRIEF HISTORY/INDICATION: A 68-year-old male was transferred from [facility] for a [id number] MS. He went to the emergency for repeated falling. In the emergency room, he was evaluated. There was no bleeding within the brain. There may have been an old stroke. After informed consent was taken from the patient, I ordered another CAT scan and as I noticed that he seemed to have some dementia and did not function all that well. It turns out he does not drive a car and neighbors take care of him. Unclear if he is taking any of his medications. CAT scan showed prior stroke, frontal and posterior portion of brain. Echocardiography showed mitral stenosis, moderate. There may be a prosthetic device there. He did not recall it. He did recall having past coronary bypass grafting and having had a past heart catheterization with Dr. Ko. Old records reviewed, no mention of prior valve; however, he had documented 40%-50% right coronary in the year 1999 with left internal mammary to left anterior descending patent, sequential vein graft to first and second obtuse marginal patent, vein graft to diagonal patent. There was graft vessel mismatch noted at that time. After informed consent, it was decided to proceed to diagnostic heart catheterization with a view toward intervention. TECHNIQUE: Following usual sterile preparation and draping, right groin was then infiltrated with 10 mL of 1% lidocaine and local anesthetic. The patient came to the labor relations officer on intravenous heparin. He received 25 mg of Benadryl intravenously. He received 2 mg Versed, 100 mcg fentanyl for conscious sedation, Dilaudid 1 mg for low back pain. He was exquisitely sensitive to palpation in his right groin. During the case, he received intravenous nitroglycerin of 15 mcg per minute for blood pressure control, Lopressor 2.5 mg intravenously for blood pressure and rate control, Apresoline 10 mg intravenously for blood pressure control. He has not received any of his medications since admission. After placement of 6-Tongan sheath in right femoral artery, selective left and right coronary arteriography, left ventriculography, vein graft angiography, left internal mammary artery angiography were performed. Catheter exchanges were under fluoroscopic guidance with J-tip guidewire lead. High-grade stenosis of the right coronary posterior descending artery was found and he received a 3.5 mm x 12 mm stent in the right proximal and right coronary and PDA received PTCA with a 2 mm x 8 mm balloon to 14 atmospheres. A 2 mm x 8 mm stent could not be passed. He had double-wire technique. 200 mL of Omnipaque 350 contrast was administered. Fluoroscopy time was 28 minutes. Radiation exposure was 29,939 cGy per cm2. During the procedure, a 6-Tongan sheath was upsized to a 7-Tongan sheath due to retained friction between 6-Tongan catheter that appears thicker than the 6-Tongan lumen of the 6-Tongan sheath. A 7-Tongan sheath was exchanged then for an 8-Tongan sheath; however, he screamed in pain when the Angio-Seal was attempted. Sheaths were withdrawn and hemostasis was obtained with manual compression. Peripheral pulses were intact at the end of the procedure, no hematoma. FINDINGS: AO 135/81, LV 135/7-17. LEFT VENTRICULOGRAM: Severe inferior basal to mid inferior hypokinesis, apical moderate hypokinesis, ejection fraction of 45%. CORONARY ARTERIES: There was diffuse 80% left main coronary artery, 100% left anterior descending, and 100% left circumflex. There was 80% proximal right coronary artery, 60% mid right coronary artery, 95% in ostia of the posterior descending, and 80% in the ostia of the distal right coronary. Right to left collateral was noted to an unidentified vessel. Left internal mammary to left anterior descending: Graft vessel mismatch, 4 mm left internal mammary, less than 1 mm left anterior descending with apical 60% narrowing. Left subclavian proximal twisted with 180-degree curve. Sequential vein graft to the first and second obtuse marginal vein graft with ostial 50% narrowing; however, vein graft is nearly 5 mm in diameter. The first obtuse marginal is 2 mm in diameter. Second obtuse marginal is completely occluded. Vein graft to diagonal is 100% obstructed. There is no diagonal noted off the left anterior descending during left internal mammary angiography. Post intervention, 0% proximal residual stenosis, 60%-70% ostial posterior descending artery narrowing. 80% ostial distal right coronary artery narrowing unchanged. Small vessel 1.5 mm. RESULTS: * Inferobasal severe hypokinesis, moderate apical hypokinesis. Ejection fraction 45%. * Diffuse 80% left main coronary, 100% left anterior descending, 100% left circumflex. * Left internal mammary to left anterior descending, graft vessel mismatch. Left anterior descending less than a millimeter diameter, diffusely sclerotic. * Sequential vein graft to first and second obtuse marginal, multiple 25% narrowings, 5 mm vessel, first obtuse marginal 2 mm, second obtuse marginal completely occluded. * Vein graft to diagonal, 100% obstructed, diagonal 100% obstructed. * 80% proximal right coronary, 95% ostial proximal posterior descending, 80% distal right coronary. * Post intervention, 0% proximal right coronary narrowing, 60%-70% ostial posterior descending artery narrowing. COMMENT: The patient has had a [id number] MS with myocardial infarction based on wall motion inferior segment. He is recommended for continued risk factor intervention and medical therapy. 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 Yasmany Mcdaniels MD TID: [id number] RECEIPT: [id number] SUZANNE/KIERAN cc: [facility]
[2024-08-06] MEDS: furosemide 40mg tablet PO SCH (20:57)
[2024-08-06] MEDS: gabapentin 100mg capsule PO SCH (20:57)
[2024-08-06] MEDS ORDERED: morphine 4 MG/ML inj SYRINge IV PRN (21:14)
[2024-08-07] VITALS (15 sets, daily range): BP systolic 98–149; BP diastolic 66–89; PULSE 76–95; RESP 14–25; TEMP 97.6–98.4; O2SAT 92–97
[2024-08-07 06:02] LABS: BASOPHILS % (AUTO) 0.4 % (0-1); EOSINOPHILS # (AUTO) 0.1 X10'3 (0-0.9); EOSINOPHILS % (AUTO) 1.5 % (0-6); HEMATOCRIT 37.5 % (42.0-52.0); HEMOGLOBIN 12.4 g/dl (14.0-17.9); LYMPHOCYTES # (AUTO) 0.7 X10'3 (1.1-4.8); LYMPHOCYTES % (AUTO) 12.2 % (21-51); MEAN CORPUSCULAR HEMOGLOBIN 26.8 PG (27.0-31.0); MEAN CORPUSCULAR VOLUME 81.3 FL (78-98); MEAN PLATELET VOLUME 8.6 FL (7.4-10.4); MONOCYTES # (AUTO) 0.7 X10'3 (0-0.9); NEUTROPHILS # (AUTO) 4.4 X10'3 (1.8-7.7); NEUTROPHILS % (AUTO) 73.9 % (42-75); PLATELET COUNT 147 X10'3 (140-440); RED BLOOD COUNT 4.61 X10'6 (4.70-6.10); RED CELL DISTRIBUTION WIDTH 19.7 % (11.5-14.5); WHITE BLOOD COUNT 5.9 X10'3 (4.5-11.0)
[2024-08-07 06:04] LABS: ALBUMIN 2.4 G/DL (3.4-5.0); ANION GAP 9 (8-16); BLOOD UREA NITROGEN 18 MG/DL (7-18); BUN/CREATININE RATIO 13.6 (10.0-20.0); CALCIUM 8.5 MG/DL (8.5-10.1); CHLORIDE 103 MMOL/L (99-107); CREATININE 1.32 MG/DL (0.60-1.10); GLUCOSE 97 MG/DL (70-104); MAGNESIUM 1.8 MG/DL (1.5-2.4); POTASSIUM 3.5 MMOL/L (3.5-5.1); SODIUM 137 MMOL/L (135-145); TOTAL CARBON DIOXIDE 25.1 MMOL/L (24-32); eCRCL 61 ML/MIN; eGFR 54 ML/MIN
[2024-08-07] MEDS: aspirin 81mg tab.chew PO SCH (07:50)
[2024-08-07] MEDS: atorvastatin 20mg tablet PO SCH (07:51)
[2024-08-07] MEDS: lisinopril 20mg tablet PO SCH (07:51)
[2024-08-07] MEDS: amLODIPine 5mg tablet PO SCH (07:51)
[2024-08-07] MEDS: metoprolol succinate 25mg (24-HOUR) SR. Tablet PO SCH (07:52)
--- NOTE | 2024-08-07 12:11 | PROGRESS NOTE ---
Daily Progress Note Providers to CC ~ Antibiotic Timeout Antibiotic Ordered?: Yes Subjective Patient reports feeling better Objective Vital Signs Date Time Temp Pulse Resp B/P (MAP) Pulse Ox O2 Delivery O2 Flow Rate FiO2 08/07/24 08:00 15 92 Room Air N/A 08/07/24 07:51 85 08/07/24 07:18 97.6 122/72 (89) 08/06/24 07:18 2.0 Result Diagram: 08/07/24 0508/07/24 0525 Awake alert asymptomatic HEENT Normocephalic atraumatic Neck supple, no JVD Chest CTA , No wheezes crackles or rhonchi Heart RRR Abdomen soft nontender no organomegaly No C/C/E Skin: Bilateral groin erythema right worst than left now improving : Heller catheter noted Skin: Well-healed scar in the mid chest Coagulation Studies Laboratory Tests Test 08/06/24 09:17 Prothrombin Time 11.9 SECONDS (9.0-12.0) INR International Normalized Ratio 1.2 INR Activated Partial Thromboplast Time 28 SECONDS (22-32) Coagulation Comments Other Results Medications reviewed Problem\Assessment\Plan Patient is a 68 years old male who states that he just did not feel well. Patient did not have any symptoms to report 1.NSTEMI : Patient underwent coronary angiogram and stent placement. He has been on Plavix but does not remember why. Antiplatelet agents per Cardiology. Nitroglycerin and heparin has been discontinued patient is asymptomatic. 2. Intertriginous candidiasis :Nystatin , improving 3. HTN Resume home medications lisinopril and amlodipine 4. Hyperlipidemia: Continue atorvastatin. 5. History of mitral valve replacement: Patient states he had a surgery 20 years ago. Does not remember the exact details and thinks he had a mitral valve replaced. 6.Code status Full code. 7. Disposition: Likely home in a.m. Date of Service: Aug 07, 2024 Billing Provider: RADHA LARSON MD Common Visit Codes: 94126-[id number] INP/OBS CARE(HIGH) RADHA LARSON MD Aug 07, 2024 12:11
[2024-08-07] MEDS: ticagrelor 90mg tablet PO SCH (13:03)
--- NOTE | 2024-08-07 13:39 | PROGRESS NOTE ---
Progress Note Cardiology Providers to CC ~ Subjective Subjective Cardiology progress note: Stent right coronary PTCA of posterior descending artery. No cardiovascular complaints. Objective Result Diagram: 08/07/2452408/07/24524 Objective I informed stable. Peripheral pulses intact. Diminished breath sounds in lungs he does have chronic obstructive pulmonary disease. No S3 gallop no murmur heard. Coagulation Studies Laboratory Tests Test 08/06/24 09:17 Prothrombin Time 11.9 SECONDS (9.0-12.0) INR International Normalized Ratio 1.2 INR Activated Partial Thromboplast Time 28 SECONDS (22-32) Coagulation Comments Problem\Assessment\Plan Additional Plan Assessment: Recovering well post non ST elevated FL inferior wall hypokinesis ejection fraction proximally 45% stent RCA PTCA of PDA. Recommendation: Remained stable could be discharged in a.m. with follow up with his primary care physician needs to continue either Brilinta at least for one month then he could be switched to Plavix. He states he has Plavix and takes it at home although it is unclear. NAYAN MENJIVAR MD Aug 07, 2024 13:39
--- NOTE | 2024-08-07 17:05 | CARDIOLOGY REPORT ---
APPROVED REPORT EXAM: Comprehensive 2D, Doppler, and color-flow Echocardiogram. Patient Location: ED15 Blood Pressure: 105/65 mmHg Heart Rate: 82 bpm Rhythm: NSR Indications NSTEMI Abnormal EKG CABG x 4 in 2004 MV replacement 2004 Instrument Person is Amalia Collins MD No previous echo 2D Dimensions LA Diam5.3 cm IVSd 1.4 (0.7-1.1cm) LVDd 5.1 cm PWd 1.4 (0.7-1.1cm) IVSs 1.6 (0.8-1.2cm) LVDs 4.2 (2.5-4.0cm) Aortic Root(2D) 3.7 cm PWs 1.9 (0.8-1.2cm) LVOT Diameter 2.17 (1.8-2.4cm) LVEF(%) 37.1 (>50%) Ao Asc Diam.3.76 cmIVC 23.05 mm FS (%) 18.0 % SV 46.8 ml CO 3.9 L/min Aortic Valve AoV Peak Adam. 143.9 cm/s AoV VTI 26.7 cm AO Peak GR. 8.3 mmHg AO Mean GR. 5 mmHg LVOT VTI 23.21 cm LVOT Peak Adam. 115.5 cm/s AMALIA(VTI)/BSA 3.21 cm2/m2 AMALIA (VTI) 3.21 cm2 Mitral Valve MV E Velocity 176.3 cm/s MV Peak Gr. 19 mmHg MV DECEL TIME 388 ms MV A Velocity 129.8 cm/s MV Mean Gr. 12 mmHg E/A Ratio 1.4 MV ZPhx557.3 cm/sMV CCmuv177.8 cm/s MVA VTI1.33 cm2MV VTI64.2 cm TDI Medial E' P. V 6.40 cm/s E/Medial E' 27.5 Tricuspid Valve TR P. Velocity 350 cm/s RAP ESTIMATE 15 mmHg TR Peak Gr. 49 mmHg RVSP 64 mmHg Pulmonary Vein S1 Velocity 23.8 cm/s D2 Velocity 44.2 cm/s PVa Jhkcduwq06.1 cm/s PVa [id number] msec LEFT VENTRICLE LV is normal in size with moderate concentric hypertrophy. Overall systolic function appears mildly t o moderately reduced. LVEF is 40-45%. RIGHT VENTRICLE RV appears severely dilated with reduced contractility. RVSP is estimated at 64 mmHG. ATRIA Left atrium is moderately dilated. AORTIC VALVE Trileaflet AV appears sclerotic without stenosis. Trace insufficiency. MITRAL VALVE Bioprosthetic MVR appears well seated but canted slightly towards the septum, with peak/mean gradient s of 19/12 mmHG and a peak velocity of 1.76 m/s. Mobile echogenicity appreciated on the MV (loop 11), suspicious for endocarditis, recommend clinical correlation. Mild mitral regurgitation. TRICUSPID VALVE The tricuspid valve is normal in structure. Mild to moderate tricuspid regurgitation. PULMONIC VALVE The pulmonary valve is normal in structure. Trace pulmonic regurgitation. GREAT VESSELS The aortic root is normal in size. Ascending aorta measured at 3.8 cm. IVC is dilated and collapses l ess than 50% with inspiration. PERICARDIUM There is no pericardial effusion. Other Information Study Quality: Adequate Conclusion LV is normal in size with moderate concentric hypertrophy. Overall systolic function appears mildly t o moderately reduced. LVEF is 40-45%. RV appears severely dilated with reduced contractility. RVSP is estimated at 64 mmHG. Left atrium is moderately dilated. Trileaflet AV appears sclerotic without stenosis. Trace insufficiency. Bioprosthetic MVR appears well seated but canted slightly towards the septum, with peak/mean gradient s of 19/12 mmHG and a peak velocity of 1.76 m/s. Mobile echogenicity appreciated on the MV (loop 11), suspicious for endocarditis, recommend clinical correlation. Mild mitral regurgitation. The tricuspid valve is normal in structure. Mild to moderate tricuspid regurgitation. The pulmonary valve is normal in structure. Trace pulmonic regurgitation. Ascending aorta measured at 3.8 cm. There is no pericardial effusion.
[2024-08-08 02:00] VITALS: BP 113/53; PULSE 74; RESP 21; TEMP 98; O2SAT 98
[2024-08-08 07:00] VITALS: BP 125/77; PULSE 88; RESP 17; TEMP 98.7; O2SAT 96
[2024-08-08 07:19] LABS: BASOPHILS % (AUTO) 0.3 % (0-1); EOSINOPHILS # (AUTO) 0.2 X10'3 (0-0.9); HEMATOCRIT 36.5 % (42.0-52.0); HEMOGLOBIN 12.2 g/dl (14.0-17.9); LYMPHOCYTES # (AUTO) 1.1 X10'3 (1.1-4.8); LYMPHOCYTES % (AUTO) 16.6 % (21-51); MEAN CORPUSCULAR HEMOGLOBIN 27.1 PG (27.0-31.0); MEAN CORPUSCULAR HGB CONC 33.4 g/dL (33.0-36.5); MEAN CORPUSCULAR VOLUME 81.2 FL (78-98); MEAN PLATELET VOLUME 8.7 FL (7.4-10.4); MONOCYTES % (AUTO) 15.1 % (2-12); NEUTROPHILS # (AUTO) 4.3 X10'3 (1.8-7.7); PLATELET COUNT 153 X10'3 (140-440); RED CELL DISTRIBUTION WIDTH 19.3 % (11.5-14.5); WHITE BLOOD COUNT 6.6 X10'3 (4.5-11.0)
[2024-08-08 07:29] LABS: ALBUMIN 2.6 G/DL (3.4-5.0); ANION GAP 8 (8-16); BLOOD UREA NITROGEN 21 MG/DL (7-18); BUN/CREATININE RATIO 15.4 (10.0-20.0); CALCIUM 8.6 MG/DL (8.5-10.1); CHLORIDE 107 MMOL/L (99-107); CREATININE 1.36 MG/DL (0.60-1.10); GLUCOSE 99 MG/DL (70-104); MAGNESIUM 1.8 MG/DL (1.5-2.4); POTASSIUM 3.4 MMOL/L (3.5-5.1); SODIUM 144 MMOL/L (135-145); TOTAL CARBON DIOXIDE 29.1 MMOL/L (24-32); eCRCL 59 ML/MIN; eGFR 52 ML/MIN
[2024-08-08 08:00] VITALS: RESP 17; O2SAT 96
[2024-08-08] MEDS: potassium Cl 20 mEq SR tablet PO PRN (08:36)
[2024-08-08 11:00] VITALS: BP 122/77; PULSE 74; RESP 18; TEMP 97; O2SAT 97
--- NOTE | 2024-08-08 19:56 | DISCHARGE SUMMARY ---
Discharge Summary Providers to CC ~ Discharge Summary Admission Diagnosis: WEAKNESS ,ABNORMAL TROPONIN Hospital Course DATE OF ADMISSION: August 05, 2024 DATE OF DISCHARGE: August 08, 2024 CBC testing done on August 08, 2024 WBC 6.6 hemoglobin 12.2 hematocrit 36.5 platelet count 153. Sed rate 6. Serum chemistry done on August 08, 2024 sodium 144 potassium 3.4 creatinine 1.36 GFR 52. Troponin 576, 3715. ProBNP 6438 CT HEAD-IMPRESSION: encephalomalacia of the left occipital lobe and left frontal lobe from a old infarct. No acute intracranial abnormality. ECHOCARDIOGRAM-Conclusion LV is normal in size with moderate concentric hypertrophy. Overall systolic function appears mildly to moderately reduced. LVEF is 40-45%. RV appears severely dilated with reduced contractility. RVSP is estimated at 64 mmHG. Left atrium is moderately dilated. Trileaflet AV appears sclerotic without stenosis. Trace insufficiency. Bioprosthetic MVR appears well seated but canted slightly towards the septum, with peak/mean gradients of 19/12 mmHG and a peak velocity of 1.76 m/s. Mobile echogenicity appreciated on the MV (loop 11), suspicious for endocarditis, recommend clinical correlation. Mild mitral regurgitation. The tricuspid valve is normal in structure. Mild to moderate tricuspid regurgita tion. The pulmonary valve is normal in structure. Trace pulmonic regurgitation. Ascending aorta measured at 3.8 cm. There is no pericardial effusion. Discharge Diagnosis\\Comment: 1.NSTEMI : 2. Intertriginous candidiasis 3. HTN , stable 4. Hyperlipidemia: 5. History of mitral valve replacement: Operations\\Procedures: None Consultants: Dr Mcdaniels Complications: None Condition on DC: Stable Discharge Summary: Patient is a 68 years old male who states that he just did not feel well. Patient did not have any symptoms to report 1.NSTEMI : Patient underwent coronary angiogram and stent placement. Stent right coronary PTCA of posterior descending artery. As per mgmt specialist Dr. Mcdaniels" patient needs follow up with his primary care physician needs to continue either Brilinta at least for one month then he could be switched to Plavix. He states he has Plavix and takes it at home although it is unclear." 2. Intertriginous candidiasis :Nystatin , improving 3. HTN Resume home medications lisinopril and amlodipine 4. Hyperlipidemia: Continued atorvastatin. 5. History of mitral valve replacement: Patient states he had a surgery 20 years ago. Does not remember the exact details and thinks he had a mitral valve replaced. Patient is feeling better he is getting discharged to rehab in stable condition. Medication reconciliation done for rehab discharge. Patient is seen and examined on the day of discharge. General-patient not in any acute distress, alert awake oriented, chronically ill-appearing, age-appropriate, looks comfortable HEENT-atraumatic normocephalic, neck supple without elevated JVD, no thyromegaly or carotid bruit. No lymphadenopathy bilaterally. Eyes-no icterus or pallor seen in eyes Chest-clear to auscultation bilaterally, breathing nonlabored no tachypnea, no wheezing, no crepitation, no crackles. Heart-S1-S2 normal, regular heart rate no murmur Abdomen bowel sounds positive on auscultation, soft nondistended nontender no guarding, no rigidity Neurology-grossly intact, nonfocal alert awake oriented Extremity- trace pedal edema bilaterally able to move all 4 extremities Psychiatry - patient is not confused or agitated cooperated during physical examination *Problems/Diagnosis: (1) NSTEMI (non-ST elevated myocardial infarction) Status: Acute Total Time Spent on D/C: > 30 Minutes Date of Service: Aug 08, 2024 Billing Provider: WILFRED MILES MD Common Visit Codes: 91770-PYS/OBS DISCH DAY >30min WILFRED MILES MD Aug 08, 2024 19:51
== END 2024-08-08 16:01 | DRG 321 ==
LOC: ER 15:09 → ED HOLD 16:11 → PCU 3S 23:50
PROVIDERS: ADMIT Internal Medicine; ATTEND Internal Medicine
PROC: 027034Z Dilation of Coronary Artery, One Artery with Drug-eluting Intraluminal Device, Percutaneous Approach (ICD-10-PCS; principal; 2024-08-06)
PROC: 4A023N7 Measurement of Cardiac Sampling and Pressure, Left Heart, Percutaneous Approach (ICD-10-PCS; 2024-08-06)
PROC: B2111ZZ Fluoroscopy of Multiple Coronary Arteries using Low Osmolar Contrast (ICD-10-PCS; 2024-08-06)
PROC: B2151ZZ Fluoroscopy of Left Heart using Low Osmolar Contrast (ICD-10-PCS; 2024-08-06)
PROC: B41F1ZZ Fluoroscopy of Right Lower Extremity Arteries using Low Osmolar Contrast (ICD-10-PCS; 2024-08-06)
PROC: B2181ZZ Fluoroscopy of Left Internal Mammary Bypass Graft using Low Osmolar Contrast (ICD-10-PCS; 2024-08-06)
PROC: B2131ZZ Fluoroscopy of Multiple Coronary Artery Bypass Grafts using Low Osmolar Contrast (ICD-10-PCS; 2024-08-06)
PROC: 02703ZZ Dilation of Coronary Artery, One Artery, Percutaneous Approach (ICD-10-PCS; 2024-08-06)
DX: I21.4 Non-ST elevation (NSTEMI) myocardial infarction (principal); N17.0 Acute kidney failure with tubular necrosis; L03.116 Cellulitis of left lower limb; N18.30 Chronic kidney disease, stage 3 unspecified; B37.2 Candidiasis of skin and nail; E78.5 Hyperlipidemia, unspecified; G89.29 Other chronic pain; Z20.822 Contact with and (suspected) exposure to COVID-19; B19.20 Unspecified viral hepatitis C without hepatic coma; F03.90 Unspecified dementia, unspecified severity, without behavioral disturbance, psychotic disturbance, mood disturbance, and anxiety; I12.9 Hypertensive chronic kidney disease with stage 1 through stage 4 chronic kidney disease, or unspecified chronic kidney disease; I25.10 Atherosclerotic heart disease of native coronary artery without angina pectoris; I48.91 Unspecified atrial fibrillation; Z95.2 Presence of prosthetic heart valve; Z95.1 Presence of aortocoronary bypass graft
CPT/HCPCS: 93306; 93459; 96365; 99291; C9600; C9607; 36415; 70450; 80048; 80053; 81001; 83735; 83880; 84484; 85025; 85610; 85651; 85730; 86140; 87081; 93005; 97116; 97161; 97530; 99152; 99153; A5200; A6258; A6449; A6590; C1725; C1751; C1760; C1769; C1874; C1894; G0378; J0360; J0696; J1171; J1200; J1644; J2003; J2250; J2270; J3010; J3246; J3490; J7030; Q9967